=== PATIENT | female | born 1990 | race Caucasian/White ===

== ENCOUNTER 2016-08-10 17:23 | Emergency (ER) | payer OTHER ==
[2016-08-10 17:44] LABS: BILIRUBIN,URINE NEGATIVE (NEG); CLARITY,URINE CLEAR (CLEAR); GLUCOSE, URINE (UA) NEGATIVE (NEG); LEUKOCYTE ESTERASE ,URINE MODERATE (NEG); NITRATE,URINE NEGATIVE (NEG); OCCULT BLOOD,URINE LARGE (NEG); PROTEIN,URINE 100 mg/dl (NEG); UROBILINOGEN,URINE 0.2 EU/dL (0.2)
[2016-08-10 17:50] LABS: URINE SAMPLE TYPE CLEAN CATCH URINE
[2016-08-10 17:51] LABS: URINE SPECIFIC GRAVITY - MAN 1.022
[2016-08-10 17:55] LABS: BACTERIA,URINE MANY; URINE SPECIFIC GRAVITY - MAN 1.022; WBC,URINE PACKED
[2016-08-10] MEDS ORDERED: Phenazopyridine Tab 200 MG TAB PO SCH (18:00)
[2016-08-10] MEDS ORDERED: CIPROFLOXACIN 500 MG TABLET PO SCH (18:00)
[2016-08-10 18:40] VITALS: RESP 20; TEMP 97.1
--- NOTE | 2016-08-10 21:36 | PDOC ---
Female Problem HPI - General Chief Complaint: Genitourinary Complaint Stated Complaint: S/S/ UTI Date Seen by Provider: 08/10/16 Time Seen by Provider: 17:25 Source: POSITIVE: Patient Exam Limitations: POSITIVE: No limitations Nurse's Notes Reviewed & Considered: Yes - History of Present Illness Initial Comments: The patient is a 26-year-old female who presents to the emergency department with increased urinary frequency and urgency. She states that the symptoms started about 3 or 4 days ago. She states that she tried pushing fluids and she thought she was getting better. Today however her symptoms have worsened and she now also has some suprapubic abdominal cramping and tenderness. She has had some subjective chills for the past 24 hours. She denies nausea or vomiting, flank pain or blood in the urine. - Patient Home Medications Home Medications: Home Medications Pantoprazole Sodium [Protonix] 40 mg PO BID #60 tab 03/07/15 Hydroxyzine HCl 25 mg PO QID #30 tab 02/04/16 Albuterol Sulfate [Proair Hfa] 1 - 2 puff INH Q4-6H #1 inhaler 05/29/16 Ciprofloxacin HCl [Cipro HCl] 500 mg PO Q12H #10 tab 08/10/16 Phenazopyridine HCl [Pyridium] 100 mg PO TID #6 tablet 08/10/16 Ranitidine HCl [Zantac 75] 75 mg PO DAILY 08/10/16 - Patient Allergies Allergies/Adverse Reactions: Allergies Allergy/AdvReac Type Severity Reaction Status Date / Time Sulfa (Sulfonamide Allergy Severe HIVES Verified 08/10/16 17:25 Antibiotics) amoxicillin Allergy Intermediate RASH Verified 08/10/16 17:25 zolpidem tartrate AdvReac Intermediate HALLUCINATI Verified 08/10/16 17:25 [From Ambien] ONS Past Medical History - heen HEENT History: Denies History Cardiovascular History: Denies History Respiratory History: Asthma Gastrointestinal History: GERD, Gallbladder Disease, GI Bleed Genitourinary History: Recurrent UTI Endocrine History: Denies History Musculoskeletal History: Denies History Prosthesis or Implant: No Neurological History: Migraines Blood Disorders: Denies History Psychiatric History: Depression, Anixety Disorders History of Sexually Transmitted Diseases: No Female Reproductive History: Denies History LMP: 07/31/16 Cancer History: Denies History In Past Year Been Physically Harmed or Verbally Threatened: No History of MDRO: Unknown History of Other Communicable Diseases: No Tobacco Use: Never Smoker Alcohol Use: Rarely Substance Use Type: None Previous Surgical History: Yes Type / Date of Surgery: D&C Anesthesia Reactions: No Malignant Hyperthermia: No Significant Family History: Asthma, Cancer, COPD, Diabetes, Heart disease, Hypertension, Lung disease Past Medical History Reviewed: Reviewed - No Changes ROS - Limitations ROS Limitations: No Limitations Constitution: REPORTS: Chills. DENIES: Fever Cardiovascular: REPORTS: Denies Cardiac Symptoms Respiratory: REPORTS: Denies Resp Symptoms Neurological: REPORTS: Denies Neuro Symptoms Gastrointestinal: REPORTS: Abdominal Pain (Suprapubic abdominal cramping). DENIES: Nausea, Vomitting Musculoskeletal: REPORTS: Denies MS Symptoms Genitourinary: REPORTS: Dysuria, Other (Frequency and urgency). DENIES: Flank Pain, Difficulty Urinating Eyes: REPORTS: Denies Symptoms ENT: REPORTS: Denies Symptoms Skin: DENIES: Rash Female Genitourinary Exam - General Appearance General Appearance: POSITIVE: Alert, Cooperative, No Acute Distress - HEENT HEENT: POSITIVE: Head Inspection Nml - Neck Neck: POSITIVE: Normal Inspection - Respiratory Respiratory: POSITIVE: No Respiratory Distress, Breath Sounds Normal - Cardiovascular Cardiovascular: POSITIVE: Regular Rate and Rhythm, Heart Sounds Normal - Abdomen Abdomen: POSITIVE: Soft, Normal Bowel Sounds, No Distention, Tenderness (Mild suprapubic abdominal tenderness) - Back Back: NEGATIVE: CVA Tenderness (R), CVA Tenderness (L) - Skin Skin: POSITIVE: No Rash - Extremities Extremity: Normal Inspection: (All Extremities) Female Genitourinary Progress - Results Reviewed by me Lab Results Reviewed: Yes Lab Results:: Laboratory Results 08/10/16 Range/Units 17:38 Ur Collection Type Clean catch urine Urine Color Yellow Urine Clarity Clear (CLEAR) Urine pH 6.0 (5.0-8.5) Ur Specific Howard >=1.030 (1.005-1.030) U Specif Grav (Refrac) 1.022 Urine Protein 100 (NEG) mg/dl Urine Glucose (UA) Negative (NEG) mg/dL Urine Ketones Negative (NEG) Urine Occult Blood Large H (NEG) Urine Nitrate Negative (NEG) Urine Bilirubin Negative (NEG) Urine Urobilinogen 0.2 (0.2) EU/dL Ur Leukocyte Esterase Moderate (NEG) Urine RBC 5-10 (NONE) /hpf Urine WBC Packed (NONE) Ur Squamous Epith Cells None (NONE) Ur Renal Epithelial Cell None (NONE) Urine Crystals None Urine Bacteria Many (NONE) Urine Casts None (NONE) Urine Mucus None (NONE) Urine Trichomonas None (NONE) Urine Yeast None (NONE) Ur Culture Indicated? Culture set Urine HCG, Qual Negative - Patient's Progress MDM / ED Course: Her urinalysis is consistent with UTI. She was started on Cipro 500 mg twice a day for 5 days as well as Pyridium 100 mg 3 times a day for 2 days. She is advised push fluids. She will return to the emergency room if increased abdominal pain or flank pain, vomiting or dehydration, high fever, any worsening or change in symptoms. She is advised follow-up with primary care in 7-10 days. Urine culture is pending. - Consult Counseled: POSITIVE: Patient, RE: Lab Results, RE: DX, RE: Need for F/U Patient Care Time - Estimated PCT Patient Care Time (In Minutes): 15 Vital Signs - Recent Vital Signs Vital Signs: Vital Signs (Last 8 hours) Temp Pulse Resp BP Pulse Ox 08/10/16 17:24 97.1 F 80 20 99/78 97 - VS Reviewed Vital Signs Reviewed: Yes Discharge Clinical Impression: UTI (urinary tract infection) Condition: Stable Prescriptions / Orders: Ciprofloxacin HCl [Cipro HCl] 500 mg PO Q12H #10 tab Phenazopyridine HCl [Pyridium] 100 mg PO TID #6 tablet Patient Instructions Given at Discharge: Urinary Tract Infection in Women (ED) Additional Instructions: The urinalysis does show evidence of infection. A culture is pending and will be available in a couple of days. This is primarily to assure that she were on the right antibiotic. You have been prescribed Cipro 500 mg twice a day for 5 days. In addition your been prescribed Pyridium 200 mg 3 times a day for 2 days. Return to the emergency room if increased pain, vomiting or dehydration, high fever, any worsening or change in symptoms. Follow-up with primary care in 7-10 days to ensure that the infection has been treated and that the blood in the urine has resolved. Follow Up With: LG RAMOS [Primary Care Provider] -
== END 2016-08-10 18:15 | disposition home or self-care (01) ==
LOC: ER 17:23
DX: N39.0 Urinary tract infection, site not specified (principal); R10.2 Pelvic and perineal pain; R30.0 Dysuria
CPT/HCPCS: 81001; 81003; 84703; 87077; 87088; 99282

== ENCOUNTER → 2016-08-24 | Outpatient (CLI) | payer OTHER ==
[2016-08-25 09:04] LABS: HIV ANTIBODY NEGATIVE (N); HIV-1 P24 ANTIGEN NEGATIVE (N)
== END ==
LOC: MOB LAB 16:45
PROVIDERS: ATTEND Physician Assistant
DX: R30.0 Dysuria (principal); Z20.2 Contact with and (suspected) exposure to infections with a predominantly sexual mode of transmission
CPT/HCPCS: 86695; 86696; 86703; 86780; 87210; 87491; 87591

== ENCOUNTER 2016-09-08 23:53 | Emergency (ER) | payer OTHER ==
[2016-09-09] MEDS ORDERED: CLINDAMYCIN 150 MG CAPSULE PO ONE (00:10)
--- NOTE | 2016-09-09 00:20 | PDOC ---
Animal Bite HPI - General Chief Complaint: Animal Bite Stated Complaint: CAT BITE RIGHT FOREARM Date Seen by Provider: 09/09/16 Time Seen by Provider: 00:14 Source: POSITIVE: Patient Exam Limitations: POSITIVE: No limitations Nurse's Notes Reviewed & Considered: Yes - History of Present Illness Initial Comments: Patient comes in today for evaluation of a cat bite. Patient Had her cat's leg trapped in a child protection gait, and ended up being bitten and scratched, and most of the bites are on her right forearm and hand. She comes in now because of significant increase of pain and swelling of her right forearm. Bites are noted to be on the palmar surface distal right forearm. Have you received a tetanus shot in the past 10 years?: Yes Body Location Affected: REPORTS: Upper Extremity (L), Upper Extremity (R) Timing: REPORTS: Abrupt Duration: 4-6 hours Location at Time of Onset: REPORTS: Home Severity: Moderate Quality: REPORTS: "Pain", Stabbing, Throbbing Animal: REPORTS: Cat, Family Pet Appearance of Animal: REPORTS: Appeared Healthy Animal Immunization Status: POSITIVE: Unknown Observation/Capture: POSITIVE: Can be Observed x 10 Days Context of Attack: REPORTS: Other (Attempting to free animal from entrapment in a child restraining gate.) Severity of Attack: POSITIVE: Scratched, Bitten, Moderate Location of Injury: POSITIVE: Right Upper Extremity, Left Upper Extremity Associated Symptoms: REPORTS: Denies Symptoms Any Prior Injuries Related to Current Complaint?: No - Patient Home Medications Home Medications: Home Medications Pantoprazole Sodium [Protonix] 40 mg PO BID #60 tab 03/07/15 Hydroxyzine HCl 25 mg PO QID #30 tab 02/04/16 Albuterol Sulfate [Proair Hfa] 1 - 2 puff INH Q4-6H #1 inhaler 05/29/16 Valacyclovir HCl [Valtrex] 2 tab PO Q12H #20 tab 08/31/16 Ranitidine HCl [Zantac] 150 mg PO DAILY 09/09/16 - Patient Allergies Allergies/Adverse Reactions: Allergies Allergy/AdvReac Type Severity Reaction Status Date / Time Sulfa (Sulfonamide Allergy Severe HIVES Verified 09/09/16 00:02 Antibiotics) amoxicillin Allergy Intermediate RASH Verified 09/09/16 00:02 zolpidem tartrate AdvReac Intermediate HALLUCINATI Verified 02/01/17 00:02 [From Geovanny] ONS Past Medical History - heen HEENT History: Denies History Cardiovascular History: Denies History Respiratory History: Asthma Gastrointestinal History: GERD, Gallbladder Disease, GI Bleed Genitourinary History: Recurrent UTI Endocrine History: Denies History Musculoskeletal History: Denies History Prosthesis or Implant: No Neurological History: Migraines Blood Disorders: Denies History Psychiatric History: Depression, Anxiety Disorders History of Sexually Transmitted Diseases: No Cancer History: Denies History History of MDRO: Unknown History of Other Communicable Diseases: No Alcohol Use: Rarely Substance Use Type: None Previous Surgical History: Yes Type / Date of Surgery: D&C Anesthesia Reactions: No Malignant Hyperthermia: No Significant Family History: Asthma, Cancer, COPD, Diabetes, Heart disease, Hypertension, Lung disease ROS - Limitations ROS Limitations: No Limitations Constitution: REPORTS: Denies Symptoms Cardiovascular: REPORTS: Denies Cardiac Symptoms Respiratory: REPORTS: Denies Resp Symptoms Neurological: REPORTS: Denies Neuro Symptoms Gastrointestinal: REPORTS: Denies GI Symptoms Endocrine: REPORTS: Denies Symptoms Musculoskeletal: REPORTS: Recent Injury (Bite), Other (Swelling right forearm) Genitourinary: REPORTS: Denies Symptoms Eyes: REPORTS: Denies Symptoms ENT: REPORTS: Denies Symptoms Skin: REPORTS: Other (Puncture wound, scratch faulkner. Noted on bilateral arms greater than left.) Lympathic: REPORTS: Denies Lympathic Symptoms Immunologic: POSITIVE: Denies Symptoms Psychiatric: POSITIVE: Denies Psych Symptoms Animal Bite Physical Exam - General Appearance General Appearance: REPORTS: Alert, Cooperative, No Acute Distress - HEENT HEENT: POSITIVE: Head Inspection Nml, Eyes Inspection Nml, Ears Inspection Nml, Nose Inspection Nml, PERRL, EOMI - Neck Neck: POSITIVE: Normal Inspection, No Apparent Injury - Skin Skin: POSITIVE: Other (Multiple puncture wounds of the right forearm multiple scratches of the right hand and left hand.) - Extremities Extremity Assessment: Normal ROM: (ALL), No Edema: (RUE), No Swelling: (RLE), ( LLE), Tender: (RUE), (LUE), Ecchymosis: (RUE), Erythema: (RUE), (LUE), Swelling : (RUE) - Neuro/Vascular/Tendon Neuro/Vascular/Tendon: POSITIVE: Oriented X3 - Psych Psych: POSITIVE: Mood Appropriate, Affect Appropriate - Wound Wound General Appearance: POSITIVE: Open to air, Other (Erythema and swelling present) Procedures - Laceration/Wound Repair Did patient have a laceration repair: No Animal Bite Progress - Patient's Progress MDM / ED Course: Patient was evaluated. She received oral clindamycin. She is to return for reevaluation here in the emergency department on . Rabies Vaccine Series Implemented: No - Consult Counseled: POSITIVE: Patient, RE: DX, RE: Need for F/U Patient Care Time - Estimated PCT Patient Care Time (In Minutes): 15 Vital Signs - VS Reviewed Vital Signs Reviewed: Yes Discharge Clinical Impression: Cat bite - wound Discharge Disposition: Discharged to Home Condition: Stable Patient Instructions Given at Discharge: Animal Bite (ED)
[2016-09-09] MEDS ORDERED: HYDROcodone-APAP 5 MG -325 MG TABLET PO SCH (00:30)
[2016-09-09] MEDS ORDERED: HYDROcodone-APAP 5 MG -325 MG TABLET PO ONE (00:32)
[2016-09-09 01:57] VITALS: RESP 16; TEMP 97.1
== END 2016-09-09 00:34 | disposition home or self-care (01) ==
LOC: ER 23:53
DX: S51.851A Open bite of right forearm, initial encounter (principal); W55.01XA Bitten by cat, initial encounter
CPT/HCPCS: 99282

== ENCOUNTER → 2016-10-07 | Outpatient (CLI) | payer OTHER ==
[2016-10-07 14:14] LABS: BASOPHILS # (AUTO) 0.05 10*3/UL; BASOPHILS % (AUTO) 0.6 % (0-1); EOSINOPHILS % (AUTO) 3.1 % (0-8); HEMATOCRIT 41.3 % (37.0-47.0); HEMOGLOBIN 13.8 g/dL (12.0-16.0); IMM GRAN % (AUTO) 0.2 % (0-5); IMM GRAN# (AUTO) 0.02 10*3/UL; LYMPHOCYTES # (AUTO) 2.66 10*3/uL; LYMPHOCYTES % (AUTO) 30.5 % (10-50); MEAN CORPUSCULAR HEMOGLOBIN 31.5 PG (27-31); MEAN CORPUSCULAR HGB CONC 33.4 g/dL (33-37); MEAN PLATELET VOLUME 9.9 FL (7.4-12.2); MONOCYTES # (AUTO) 0.69 10*3/UL (0.3-0.8); MONOCYTES % (AUTO) 7.9 % (5-15); NEUTROPHILS # (AUTO) 5.02 10*3/UL; NEUTROPHILS % (AUTO) 57.7 % (50-80); RDW COEFFICIENT OF VARIATION 12.7 % (11.5-14.5); RED BLOOD COUNT 4.38 10^6/uL (4.20-5.40); WHITE BLOOD COUNT 8.71 10^3/uL (4.8-10.8)
[2016-10-07 14:35] LABS: PLATELET MORPHOLOGY COMMENT NORMAL MORPHOLOGY (NORM)
[2016-10-07 14:47] LABS: ASPARTATE AMINO TRANSFERASE 22 IU/L (8-39); BILIRUBIN,TOTAL 0.5 mg/dL (0.3-1.2); BLOOD UREA NITROGEN 10 mg/dL (7-22); CALCIUM 9.8 mg/dL (8.7-10.7); CHLORIDE 104 meq/L (98-112); CREATININE 0.8 mg/dL (0.50-1.20); EST GLOMERULAR FILTRATION > 60 (>60 ml/min/1.73m(2)); GLUCOSE 84 mg/dL (78-110); POTASSIUM 4.5 meq/L (3.8-5.2); SODIUM 141 meq/L (135-145)
[2016-10-07 14:50] LABS: ERYTHROCYTE SEDIMENTATION RATE 8 MM/HR (0-20)
== END ==
LOC: MOB LAB 13:27
PROVIDERS: ATTEND Family Medicine
DX: L40.9 Psoriasis, unspecified (principal); R10.84 Generalized abdominal pain; K21.9 Gastro-esophageal reflux disease without esophagitis
CPT/HCPCS: 36415; 80053; 82306; 82607; 84443; 85025; 85652

== ENCOUNTER 2016-10-16 09:33 | Day surgery (SDC) | payer OTHER ==
[~2016-10-16 09:33] MED LIST: LIDOCAINE 2% VISCOUS(20 MG/1 ML) - 15 ML UD CUP PO ONE; LIDOCAINE W/ SODIUM BICARB 0.5 ML SYR ONE; Lactated Ringers 1,000 ML PRIMARY IV ONE
[2016-10-16 09:51] LABS: URINE SPECIFIC GRAVITY - MAN 1.026
--- NOTE | 2016-10-16 10:29 | GEN.OPNOTE ---
EGD Operative Note Surgery Date: 10/16/16 Preoperative Diagnosis: Right upper quadrant abdominal pain Postoperative Diagnosis: Right upper quadrant abdominal pain Procedure: Esophagogastroduodenoscopy Surgeon: Tyshawn Lee MD Anesthesia Provider: Bulmaro Lloyd CRNA Anesthesia Type: MAC Indications: Patient's been having abdominal pain possible reflux disease Findings: Esophagus: Olympus video EGD scope inserted in the posterior pharynx. Guided esophagus under direct visualization. Esophagus be be totally normal. No esophagitis GE Junction : GE junction 40 cm from incisors Fundus : Scope retroflexed on itself revealing normal fundus Body : Body stomach was within normal limits no ulcers masses or tumors Prepyloric : Prepyloric areas within normal limits no masses tumors or ulcers Small Intestine : First second third portion duodenum normal A lubricated flexible upper endoscope was inserted and passed through the esophagus and stomach into the duodenum. Additional Details: At this point will get the patient set up for a HIDA scan.
[2016-10-16] MEDS ORDERED: ONDANSETRON 4 MG/2 ML VIAL ONE (10:55)
[2016-10-16] MEDS ORDERED: ONDANSETRON 4 MG/2 ML VIAL IVP ONE (11:05)
[2016-10-16 11:29] VITALS: RESP 16; TEMP 97.8
== END 2016-10-16 11:14 | disposition home or self-care (01) ==
LOC: SDSC 09:33
PROVIDERS: ATTEND Surgery
DX: K21.9 Gastro-esophageal reflux disease without esophagitis (principal); K82.8 Other specified diseases of gallbladder; R10.11 Right upper quadrant pain
CPT/HCPCS: 43235; 84703; J2704; J2405; J7120

== ENCOUNTER 2016-10-17 00:29 | Emergency (ER) | payer OTHER ==
[2016-10-17 00:53] VITALS: RESP 20; TEMP 97.6
[2016-10-17] MEDS ORDERED: OSELTAMIVIR PHOSPHATE 6 MG/1 ML -60 ML ORAL SUSP PO SCH (01:30)
[2016-10-17] MEDS ORDERED: OSELTAMIVIR PHOSPHATE 75 MG CAPSULE PO ONE (01:41)
--- NOTE | 2016-10-17 05:39 | PDOC ---
General Adult HPI - General Chief Complaint: General Medical Stated Complaint: Fever, sore throat, congestion Date Seen by Provider: 10/16/16 Time Seen by Provider: 00:35 Source: POSITIVE: Patient Exam Limitations: POSITIVE: No limitations Nurse's Notes Reviewed & Considered: Yes - History of Present Illness Initial Comment: The patient is a 26-year-old female. She states that for the past 2 days she has had some intermittent fevers and a mild cough. She states her mother, who has been staying with her family, was diagnosed with influenza. Her one year 7- month-old son was diagnosed with influenza at this evening. Have you received a tetanus shot in the past 10 years?: Unknown Body Location Affected: REPORTS: Head (Some headache), Other (Myalgia, cough) Timing: REPORTS: Gradual Duration: >24 hours (Approximately 2 days) Severity: Moderate Quality: REPORTS: Other (Myalgia) Context: REPORTS: None Modifying Factors: improves with: Nothing Similar Symptoms Previously: No Recent Care Received: REPORTS: Denies Any Prior Injuries Related to Current Complaint?: No - Patient Home Medications Home Medications: Home Medications Albuterol Sulfate [Proair Hfa] 1 - 2 puff INH Q4-6H #1 inhaler 09/25/16 Hydroxyzine HCl 25 mg PO QID #30 tab 09/25/16 Pantoprazole Sodium [Protonix] 40 mg PO BID #60 tab 09/25/16 Valacyclovir HCl [Valtrex] 2 tab PO Q12H #20 tab 09/25/16 Cefuroxime Axetil [Cefuroxime] 500 mg PO BID #20 tab 10/07/16 Methylprednisolone [Medrol] 4 mg PO 3-4XD #1 packet 10/07/16 Oseltamivir Phosphate [Tamiflu] 75 mg PO DAILY #9 capsule 10/17/16 - Patient Allergies Allergies/Adverse Reactions: Allergies Allergy/AdvReac Type Severity Reaction Status Date / Time Sulfa (Sulfonamide Allergy Severe HIVES Verified 10/17/16 00:43 Antibiotics) amoxicillin Allergy Intermediate RASH Verified 10/17/16 00:43 clindamycin Allergy Intermediate rash Verified 10/17/16 00:43 hydrocodone Allergy Intermediate NAUSEA Verified 10/17/16 00:43 zolpidem tartrate AdvReac Intermediate HALLUCINATI Verified 10/17/16 00:43 [From Ambien] ONS Past Medical History - heen HEENT History: Denies History Cardiovascular History: Other (please comment) Additional Cardiovasular History: heart murmur Respiratory History: Asthma Gastrointestinal History: GERD, Irritable Bowel Syndrome, Gallbladder Disease, GI Bleed Genitourinary History: Recurrent UTI Endocrine History: Denies History Musculoskeletal History: Denies History Prosthesis or Implant: No Neurological History: Migraines Blood Disorders: Denies History Psychiatric History: Depression, Anxiety Disorders History of Sexually Transmitted Diseases: No Female Reproductive History: Denies History Obstetrical History: Denies History Cancer History: Denies History In Past Year Been Physically Harmed or Verbally Threatened: No History of MDRO: Unknown History of Other Communicable Diseases: No Tobacco Use: Never Smoker Alcohol Use: None Substance Use Type: None Previous Surgical History: Yes Type / Date of Surgery: D&C. T&A. COLONOSCOPY. WISDOM TEETH Anesthesia Reactions: No Malignant Hyperthermia: No Significant Family History: Asthma, Cancer, COPD, Diabetes, Heart disease, Hypertension, Lung disease Past Medical History Reviewed: Reviewed - No Changes ROS - Limitations ROS Limitations: No Limitations Constitution: REPORTS: Fever (Subjectively) Cardiovascular: REPORTS: Denies Cardiac Symptoms Respiratory: REPORTS: Cough Non Productive Neurological: REPORTS: Denies Neuro Symptoms Gastrointestinal: REPORTS: Denies GI Symptoms Endocrine: REPORTS: Denies Symptoms Musculoskeletal: REPORTS: Denies MS Symptoms Genitourinary: REPORTS: Denies Symptoms Eyes: REPORTS: Denies Symptoms ENT: REPORTS: Denies Symptoms Skin: REPORTS: Denies Skin Symptoms Lympathic: REPORTS: Denies Lympathic Symptoms Immunologic: POSITIVE: Denies Symptoms Psychiatric: POSITIVE: Denies Psych Symptoms General Adult Exam - General Appearance General Appearance: POSITIVE: Alert, Cooperative, No Acute Distress, No Evidence of Trauma - HEENT HEENT: POSITIVE: Head Inspection Nml, Eyes Inspection Nml, Ears Inspection Nml, Nose Inspection Nml, Oral/Dental Inspect. Nml, Pharynx Inspect. Nml, PERRL, EOMI - Pupils Pupil Size: 4 mm: Bilateral (PERRLA) - Neck Neck: POSITIVE: Normal Inspection, Thyroid Normal - Respiratory Respiratory: POSITIVE: No Respiratory Distress, Breath Sounds Normal, Chest Non- Tender - Cardiovascular Cardiovascular: POSITIVE: Regular Rate & Rhythm, No Murmur, No Gallop, PMI Normal Peripheral Pulses: Radial (R): 2+, Radial (L): 2+ - Abdomen Abdomen: Soft: (All Quadrants), Normal Bowel Sounds: (All Quadrants), Denies Tenderness: (All Quadrants), No Splenomegaly: (All Quadrants), No Hepatomegaly: (All Quadrants), No Guarding: (All Quadrants), No Rebound: (All Quadrants), No Palpable Pulse: (All Quadrants), No Palpabale Mass: (All Quadrants), No Distention: (All Quadrants), No Rigidity: (All Quadrants) - Back Back: POSITIVE: Normal Inspection - Skin Skin: POSITIVE: Normal Color, Warm, Dry, No Rash - Extremities Extremity: Non-Tender: (All Extremities), Normal ROM: (All Extremities), Normal Inspection: (All Extremities) - Neurological / Psychological Neurological: POSITIVE: 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, 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 Normal As Tested, Motor Normal, Sensation Normal, 5, 6 General Adult Progress - Results Reviewed by me Lab Results Reviewed: Yes (influenza negative) Lab Results:: Influenza negative - Patient's Progress Pain Medication Addressed: POSITIVE: Yes (Recommended Advil or Tylenol) School/Work Release Addressed: POSITIVE: Not Applicable Re-Examine Time: 01:25 Status: POSITIVE: Unchanged Antibiotics Given: Yes (Tamiflu prophylactically) - Consult Counseled: POSITIVE: Patient, RE: Lab Results, RE: DX, RE: Need for F/U Patient Care Time - Estimated PCT Patient Care Time (In Minutes): 30 Vital Signs - Recent Vital Signs Vital Signs: Vital Signs (Last 8 hours) Temp Pulse Resp BP Pulse Ox 10/17/16 00:30 97.6 F 116 H 20 98/70 94 - VS Reviewed Vital Signs Reviewed: Yes Discharge Clinical Impression: Exposure to influenza Discharge Disposition: Discharged to Home Condition: Stable Prescriptions / Orders: Oseltamivir Phosphate [Tamiflu] 75 mg PO DAILY #9 capsule Patient Instructions Given at Discharge: Influenza (ED) Additional Instructions: Tamiflu, 75 mg daily for 10 days. Increase fluids. Good handwashing. Avoid kissing and sneezing and coughing around other people. Follow-up with your primary care provider. Return here anytime if condition worsens. Follow Up With: COCO COUCH [Primary Care Provider] - (Instructions as above. Follow-up with your primary care provider. Return here anytime if condition worsens. Instructions as above. Follow-up with your primary care provider. Return here anytime if condition worsens.)
== END 2016-10-17 01:52 | disposition home or self-care (01) ==
LOC: ER 00:29
DX: R05 Cough (principal); R50.9 Fever, unspecified
CPT/HCPCS: 87804; 99282; 99283

== ENCOUNTER 2016-11-02 07:00 | Day surgery (SDC) | payer OTHER ==
[2016-11-02 07:20] LABS: URINE SPECIFIC GRAVITY - MAN 1.021
[2016-11-02] MEDS ORDERED: Sodium Chloride 0.9% vial 30 ML ONE (07:23)
[2016-11-02] MEDS ORDERED: Iothalamate Meglumine 30 ML VIAL IV ONE (07:24)
[2016-11-02] MEDS ORDERED: BUPIVACAINE 0.25% W/ EPI - 10 ML VIAL ONE (07:24)
[2016-11-02] MEDS ORDERED: MIDAZOLAM 5 MG/1 ML ONE (07:28)
[2016-11-02] MEDS ORDERED: LIDOCAINE MPF 2% - 5 ML (20 MG/1 ML) ONE (07:28)
[2016-11-02] MEDS ORDERED: fentaNYL Inj 250 MCG/5 ML VIAL ONE (07:28)
[2016-11-02] MEDS ORDERED: ROCURONIUM 10 MG/1 ML - 5 ML VIAL IVP ONE (07:29)
[2016-11-02] MEDS ORDERED: PANTOPRAZOLE IV 40 MG VIAL ONE (07:40)
[2016-11-02] MEDS ORDERED: DEXAMETHASONE SOD PHOSPHATE 4 MG/1 ML VIAL ONE (07:45)
[2016-11-02] MEDS ORDERED: ONDANSETRON 4 MG/2 ML VIAL ONE (07:45)
[2016-11-02] MEDS ORDERED: Lactated Ringers 1,000 ML PRIMARY IV ONE ×3 (08:07→08:36)
[2016-11-02] MEDS ORDERED: SUFENTANIL 50 MCG/1 ML ONE (08:07)
[2016-11-02] MEDS ORDERED: LIDOCAINE W/ SODIUM BICARB 0.5 ML SYR ONE (08:32)
[2016-11-02] MEDS ORDERED: SUGAMMADEX SODIUM 200 MG/2 ML VIAL IV ONE (08:44)
[2016-11-02] MEDS ORDERED: KETOROLAC 30 MG/1 ML VIAL ONE (08:44)
[2016-11-02] MEDS ORDERED: HYDROmorphone 2 MG/1 ML IVP PRN (08:49)
[2016-11-02] MEDS ORDERED: NORMAL SALINE 10 ML SYRINGE FLUSH IVP PRN ×2 (08:49→09:00)
[2016-11-02] MEDS ORDERED: PROMETHAZINE 25 MG/1 ML VIAL IM PRN (08:49)
--- NOTE | 2016-11-02 08:57 | GEN.OPNOTE ---
Operative Note Surgery Date: 11/02/16 Preoperative Diagnosis: Biliary dyskinesia. Persistent nausea and vomiting Postoperative Diagnosis: Biliary dyskinesia. Hemorrhagic ovarian cysts Procedure: Laparoscopic cholecystectomy with intraoperative cholangiogram Surgeon: Tyshawn Lee MD Energy Conservation Engineer: Ashish Powers MD Anesthesia Type: General Estimated Blood Loss (mL): 2 Fluids: Lactated Ringer's please see anesthesia notes in EMR Pathology: Gallbladder sent for pathology Indications: Patient has is consistent with biliary dyskinesias Findings: Patient had what appeared to be blood in the abdominal cavity. She has a right ovarian cyst Operative Summary: Patient was brought in the operating room. Placed in supine position. Given general anesthetic. Was prepped draped sterile fashion. Quarter percent Marcaine was infiltrated at all trocar sites. Small incision made below the umbilicus. Veress needle inserted pneumoperitoneum obtained. After adequate pneumoperitoneum a 10 mm trocar was placed using the Visiport. The patient had a small amount of blood seen in the right gutter. This appeared be there from the get go and not from the surgery itself Under direct laparoscopic visualization a 10 mm trocar subxiphoid and 2 -5 mm in the midclavicular and midaxillary line. Appropriate instrument were placed. We explored and found the patient had what appeared to be of right ovarian cyst which I believe was the source of the bleeding. Left ovary look normal. She had apparently tubular cyst on the left. Gallbladder grasped at the fundus retracted over the liver edge. Gallbladder was grasped at Jaquelin's pouch. The cystic duct was dissected free. The cystic duct was clipped near the gallbladder. Intraoperative cholangiocatheter was placed through an angiocatheter. I then opened up the cystic duct with scissors. Intraoperative cardiogram catheter was placed. C-arm was brought in an intraoperative cholangiogram was then done with the aid of the C-arm. There is no evidence of obstruction of the common bile duct and proper anatomy was identified. The C-arm was removed. The cholangiogram was then removed. The cystic duct was doubly clipped and divided. Likewise the cystic artery was dissected free 3 hemoclips placed and divided. The gallbladder was dissected off liver's edge using electrocautery. The gallbladder was then removed through a subxiphoid incision. The abdominal cavity was irrigated until clear. The trochars were removed. The umbilicus incision was closed with 0 Vicryl suture to the fascia. The skin was reapproximated using 4-0 Vicryl simple sutures. The remainder trocar sites were 5 mm defects we will close. The remainder skin incisions closed with 4-0 Vicryl. Steri-Strips applied sterile dressings applied. Patient transferred to recovery room in stable condition. Counts were correct
[2016-11-02] MEDS ORDERED: HYDROcodone-APAP 7.5 MG-325 MG TABLET PO PRN (09:00)
[2016-11-02] MEDS ORDERED: Lactated Ringers 1,000 ML PRIMARY IV SCH ×2 (09:00)
[2016-11-02] MEDS ORDERED: ONDANSETRON 4 MG/2 ML VIAL IVP PRN (09:00)
[2016-11-02] MEDS ORDERED: MORPHINE SULFATE 2 MG/1 ML IVP PRN (09:00)
[2016-11-02] MEDS ORDERED: oxyCODONE-ACETAMINOPHEN 5-325 TAB PO PRN (09:20)
[2016-11-02] MEDS: Nalbuphine Inj 20 MG/ML Ampule ONE ×2 (09:23→09:28)
[2016-11-02] MEDS ORDERED: oxyCODONE-ACETAMINOPHEN 5-325 TAB PO ONE (09:36)
[2016-11-02 10:06] VITALS: RESP 16
[2016-11-02] MEDS ORDERED: diphenhydrAMINE 50 MG/1 ML VIAL ONE (10:23)
[2016-11-02 11:42] VITALS: TEMP 98.2
== END 2016-11-02 11:25 | disposition home or self-care (01) ==
LOC: SDSC 07:00
PROVIDERS: ATTEND Surgery
DX: K82.8 Other specified diseases of gallbladder (principal); R11.2 Nausea with vomiting, unspecified; N83.201 Unspecified ovarian cyst, right side; K81.1 Chronic cholecystitis
CPT/HCPCS: 47563; 74300; 84703; A4216; J1200; J1885; J2300; J2704; J3010; Q9961; J1100; J2001; J2250; J2405; J3490; J7120

== ENCOUNTER → 2017-02-22 | Outpatient (CLI) | payer OTHER ==
[2017-02-22 15:02] LABS: BLOOD UREA NITROGEN 11 mg/dL (7-22); BUN/CREATININE RATIO 12.22 (6-20); CALCIUM 8.6 mg/dL (8.7-10.7); EST GLOMERULAR FILTRATION > 60 (>60 ml/min/1.73m(2)); SERUM ALBUMIN 4.1 g/dL (3.5-4.8)
[2017-02-22 15:03] LABS: BASOPHILS # (AUTO) 0.02 10*3/UL; BASOPHILS % (AUTO) 0.2 % (0-1); EOSINOPHILS # (AUTO) 0.08 10*3/UL; LYMPHOCYTES # (AUTO) 1.55 10*3/uL; MEAN CORPUSCULAR HGB CONC 33.3 g/dL (33-37); MEAN CORPUSCULAR VOLUME 93.1 FL (81-99); MEAN PLATELET VOLUME 10.5 FL (7.4-12.2); MONOCYTES # (AUTO) 0.88 10*3/UL (0.3-0.8); MONOCYTES % (AUTO) 10.9 % (5-15); NEUTROPHILS % (AUTO) 68.4 % (50-80); RED BLOOD COUNT 4.19 10^6/uL (4.20-5.40)
[2017-02-22 15:03] LABS: C-REACTIVE PROTEIN 7.3 mg/dL (0.0-0.9); LIPASE 74 IU/L (23-300)
[2017-02-22 15:04] LABS: PLATELET MORPHOLOGY COMMENT NORMAL MORPHOLOGY (NORM); RBC MORPHOLOGY COMMENT NORMAL MORPHOLOGY (NORM); WBC MORPHOLOGY COMMENT NORMAL MORPHOLOGY (NORM)
== END ==
LOC: MOB LAB 13:58
PROVIDERS: ATTEND Physician Assistant
DX: R10.84 Generalized abdominal pain (principal); R11.2 Nausea with vomiting, unspecified; R19.7 Diarrhea, unspecified; R30.0 Dysuria; R10.2 Pelvic and perineal pain; F17.200 Nicotine dependence, unspecified, uncomplicated
CPT/HCPCS: 36415; 80053; 83690; 85025; 86140; 87088; 87480; 87491; 87510; 87591; 87660